=== PATIENT | female | born 1930 | race Caucasian/White ===

== ENCOUNTER 2017-04-30 09:13 | Outpatient (CLI) | payer MEDICARE ==
[2017-04-30 10:50] LABS: Hematocrit 47.7 % (36.0-47.0); Mean Platelet Volume 7.9 fL (7.4-10.4); Red Blood Cell (RBC) Count 5.12 mill/uL (4.20-5.40); White Blood Cell (WBC) Count 9.8 thou/uL (4.8-10.8)
--- NOTE | 2017-04-30 12:48 | RAD ---
TWO VIEWS CHEST: TECHNIQUE: Preoperative chest radiographs. PA and lateral views of the chest are obtained. FINDINGS: Sternotomy wires are seen. ACDF plates and screws are seen. The lungs are well aerated. No evidence of active intrathoracic disease is seen. No evidence of ef fusions, pneumonia, or pneumothorax is seen. IMPRESSION: Normal two view chest. POS: [facility]
--- OUTSIDE RECORDS SUMMARY | 2017-04-30 12:49 | XMS | Clinical Summary ---
:1930 Author Organization [facility] Address [address] [place] [address] Phone Care Team Providers Name Role Phone , Primary Care Provider Unavailable Allergies Not on File Current Medications Not on file Active Problems Not on file Social History Tobacco Use Types Packs/Day Years Used Date Never Assessed Sex Assigned at Date Recorded Not on file Last Filed Vital Signs Not on file Plan of Treatment Not on file Results Not on filefrom Last 3 Months
--- NOTE | 2017-04-30 15:29 | EKG ---
Test Reason : Blood Pressure : / mmHG Vent. Rate : 081 BPM Atrial Rate : 081 BPM P-R Int : 132 ms QRS Dur : 084 ms QT Int : 394 ms P-R-T Axes : 000 -07 095 degrees QTc Int : 457 ms Normal sinus rhythm Septal infarct , age undetermined Nonspecific ST-T changes Abnormal ECG No previous ECGs available Confirmed by DR. Diann MORALES ([id number]) on 04/30/2017 3:28:57 PM Referred By: STEPHANIE Confirmed By:DR. Diann MORALES
== END 2017-04-30 09:14 | disposition home or self-care (01) ==
LOC: LABBT 09:13
PROVIDERS: ATTEND Obstetrics & Gynecology
DX: Z01.818 Encounter for other preprocedural examination (principal); N95.0 Postmenopausal bleeding
CPT/HCPCS: 71020; 85027; 86850; 86900; 86901; 93005; 93010

== ENCOUNTER 2017-05-03 08:43 | Day surgery (SDC) | payer MEDICARE ==
[2017-04-30 09:35] VITALS: BMI 32.4
--- NOTE | 2017-04-30 11:43 | HP ---
SCHEDULED DATE OF SURGERY: 05/03/2017 HISTORY OF PRESENT ILLNESS: Ms. Galindo is an 86-year-old white female who presented on 02/24/2017 for evaluation of postmenopausal bleeding. She reported some light vaginal bleeding that started t he past month and did report a prior history of a uterine polyp removal in the past. She had no pre vious abnormal Pap smears. No pelvic pain, no weight loss or any other constitutional symptoms. PAST MEDICAL HISTORY: Significant for hyperlipidemia and thyroid disorder. PAST SURGICAL HISTORY: Hysteroscopy, polyp resection of the uterus, she has had a neck fusion, aort ic valve replacement, wrist surgery, joint replacement and cataract surgery. SOCIAL HISTORY: Nonsmoker, nondrinker. She is and still works. ALLERGIES: She has no known drug allergies. CURRENT MEDICATIONS: Calcium and vitamin D, Plavix 75 mg tablet daily, fluticasone proprionate nasa l spray 50 mcg daily to each nostril, levothyroxine 50 mcg daily, mimxrnzaqx-kkxmhdnlgz-gephxfcoxwtd hiazide 40-5-25 mg tablet daily, 81 mg ASA daily. FAMILY HISTORY: Malignant breast neoplasm in her mother. PHYSICAL EXAMINATION: VITAL SIGNS: Blood pressure is 120/70, pulse 87, respirations 18. GENERAL: Height 64 inches, weight 191 pounds. BMI 32.8. LUNGS: Clear to auscultation. HEART: Regular rate and rhythm. S1, S2 heart sounds with grade 2 systolic mechanical murmur noted. ABDOMEN: Soft, nontender, nondistended. No palpable masses. PELVIC: Vulva and vagina had no lesions. Cervix had no lesions. Her uterus had sounded to 9 cm wi th endometrial biopsy in February showing proliferative endometrium, no hyperplasia seen. There were no adnexal masses or uterine masses seen. Endometrial lining 02/24/2017 was thick at 10 mm. The patient received a month of therapy of Provera 10 mg b.i.d. and follow up ultrasound on 04/28/20 17. She was still having some bleeding despite the Provera and she was noted again to have a thicke rodrigue endometrial lining of 9.4 mm with minimal reduction in the size after progestin therapy. ASSESSMENT: An 86-year-old white female with postmenopausal bleeding and thickened endometrium. Po ssible endometrial polyp. PLAN: Proceed with diagnostic hysteroscopy, D\T\C with [employer] system and removal of polyp if enco untered during the hysteroscopic procedure and for further diagnostic evaluation.
--- OUTSIDE RECORDS SUMMARY | 2017-05-03 09:04 | XMS | Clinical Summary ---
:1930 Author Organization [facility] Address [address] [place] [address] Phone Care Team Providers Name Role Phone [...]
[2017-05-03] MEDS ORDERED: CEFAZOLIN/Water 2 GM/20 ML SYRINGE ONE ×2 (09:36→09:43)
[2017-05-03] MEDS ORDERED: Fentanyl 100 MCG/2 ML VIAL ONE (09:47)
[2017-05-03] MEDS ORDERED: Ketorolac Tromethamine 30 MG/ML VIAL ONE (09:56)
[2017-05-03] MEDS ORDERED: Lidocaine 2% PF 10 ML AMP (For Epidural Use) ONE (09:56)
[2017-05-03] MEDS ORDERED: Dexamethasone 20 MG/5 ML VIAL ONE (09:56)
[2017-05-03] MEDS ORDERED: Propofol 200 MG/20 ML VIAL ONE (09:56)
[2017-05-03] MEDS ORDERED: Ondansetron HCl/PF 4 MG/2 ML Vial ONE (09:56)
--- NOTE | 2017-05-03 10:49 | OP ---
DATE OF SURGERY: 05/03/2017 PREOPERATIVE DIAGNOSES: 1. An 86-year-old white female with postmenopausal bleeding and thickened endometrial lining. 2. Presumed endometrial polyps. POSTOPERATIVE DIAGNOSES: 1. An 86-year-old white female with postmenopausal bleeding and thickened endometrial lining. 2. Presumed endometrial polyps. PROCEDURES PERFORMED: Diagnostic hysteroscopy with TRUCLEAR device with D\T\C and then a 5 mm incis or excision of the polypoid lesions. SURGEON: Mirtha Turner M.D. ANESTHESIA: General. ESTIMATED BLOOD LOSS: Less than 10 mL. COMPLICATIONS: None. COUNTS: Correct x2. Distension media deficit 120 mL post-procedure. FINDINGS: 1. Normal and exo and endocervix. 2. Polypoid lesion in the upper anterior uterine cavity noted and also lower uterine segment anteri or cavity status post excision. Some fibrous texture to these noted on resection, possible submucos al fibroids versus polyps. DISPOSITION: Recovery room, then to day stay and to plan for discharge home. DESCRIPTION OF OPERATIVE PROCEDURE: The patient previously received informed consent in regards to surgery. She was taken back to the operating room where she received a general endotracheal anesthe tic agent without complications, placed in dorsal lithotomy position with use of Jay stirrups, pre pped and draped in usual sterile fashion. In and out catheterization of the bladder was performed d uring the process. A side-arm speculum was placed in the vagina. Anterior lip of cervix was graspe d with single-tooth tenaculum. The uterus sounded to 9 cm. The cervix was then dilated to allow fo r 18 mm Vega dilator and then the diagnostic 5 mm Truclear hysteroscope was inserted. The uterine cavity was distended with the previously mentioned findings. Sharp curettage was then carried out a nd these were sent for final path and then the hysteroscope was reinserted. The two polypoid lesion s still remained and therefore, the incisor 5 mm device was assembled and then under hysteroscopic g uidance, the polypoid lesions were excised down to the base of the endometrial cavity and removing t his in its entirety and sending this for final pathology. Once this was accomplished and hemostasis confirmed, the hysteroscope was then removed and the fluid deficit noted be 120 mL. The tenaculum was removed from the cervical site and a sponge stick was placed over this for hemostasis. Speculum was removed and surgery was completed. The patient was awakened from anesthesia and transferred to the recovery room in stable condition.
== END 2017-05-03 12:40 | disposition home or self-care (01) ==
LOC: SDC 08:43
PROVIDERS: ATTEND Obstetrics & Gynecology
PROC: 0UB98ZX Excision of Uterus, Via Natural or Artificial Opening Endoscopic, Diagnostic (ICD-10-PCS; principal; 2017-05-03)
PROC: 0UDB8ZX Extraction of Endometrium, Via Natural or Artificial Opening Endoscopic, Diagnostic (ICD-10-PCS; 2017-05-03)
DX: N84.0 Polyp of corpus uteri (principal); E78.5 Hyperlipidemia, unspecified; E07.9 Disorder of thyroid, unspecified; Z79.899 Other long term (current) drug therapy; Z98.1 Arthrodesis status; Z90.49 Acquired absence of other specified parts of digestive tract; Z95.1 Presence of aortocoronary bypass graft; Z98.890 Other specified postprocedural states; Z80.3 Family history of malignant neoplasm of breast
CPT/HCPCS: 88305; J1100; J1885; J2001; J2405; J2704; J3010